=== PATIENT | male | born 1995 | race Caucasian/White ===

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

== ENCOUNTER 2017-05-25 21:45 | Emergency (ER) | payer OTHER ==
[~2017-05-25] VITALS: Ht 175.3 cm; Wt 59.9 kg
[2017-05-25 22:55] VITALS: BP 136/84
== END 2017-05-25 22:56 | disposition left against medical advice (07) ==
LOC: ED 21:45
DX: R11.10 Vomiting, unspecified (principal); Z53.21 Procedure and treatment not carried out due to patient leaving prior to being seen by health care provider